=== PATIENT | female | born 1985 | race Caucasian/White ===

== ENCOUNTER 2021-10-09 20:38 | Emergency (ER) | payer OTHER ==
[~2021-10-09] VITALS: Ht 160 cm; Wt 72.6 kg
[~2021-10-09 20:38] MED LIST: HYDACE5 PO
[2021-10-09] MEDS ORDERED: AMOCLA875 PO (22:35)
[2021-10-12] MEDS ORDERED: IBUP200 PO (17:17)
[2021-10-12] MEDS ORDERED: BENADRYL25 MG PO (17:17)
== END 2021-10-09 23:23 | disposition home or self-care (01) ==
LOC: ER 20:38
DX: S02.609A Fracture of mandible, unspecified, initial encounter for closed fracture (principal); F17.210 Nicotine dependence, cigarettes, uncomplicated; Y04.8XXA Assault by other bodily force, initial encounter
CPT/HCPCS: 70486; 96374; 96375; 99283-25; A9270; J2270; J2405

== ENCOUNTER 2021-10-13 11:39 | Day surgery (SDC) | payer OTHER ==
[~2021-10-13] VITALS: Ht 160 cm; Wt 72.4 kg
[~2021-10-13 11:39] MED LIST changes: +AMOCLA875 PO; +BENADRYL25 MG PO; +IBUP200 PO
--- NOTE | 2021-10-13 13:49 | NUR ---
10/13/21 1349 Irma Schwarz PT SENT TO PACU WITH WIRE SCISSORS TO GO HOME WITH
--- NOTE | 2021-10-13 14:16 | NUR ---
10/13/21 1416 Hemalatha Rivera INFORMED PATIENT STILL HAVING PAIN. STATES TO GIVE ANOTHER 50MCG OF IVP FENTANYL AND PATIENT OKAY TO GO HOME AND TAKE PRESCRIBED PAIN MEDICATIONS FROM THERE.
== END 2021-10-13 14:24 | disposition home or self-care (01) ==
LOC: ORSCSDS 11:39
PROVIDERS: Otolaryngology
PROC: 2W31X9Z Immobilization of Face using Wire (ICD-10-PCS; principal; 2021-10-13 13:00)
PROC: 0NSTXZZ Reposition Right Mandible, External Approach (ICD-10-PCS; principal; 2021-10-13 13:00)
DX: S02.601A Fracture of unspecified part of body of right mandible, initial encounter for closed fracture (principal); F17.210 Nicotine dependence, cigarettes, uncomplicated
CPT/HCPCS: A9270; C1713; J1100; J2250; J2405; J2704; J3010

== ENCOUNTER 2022-01-30 23:25 | Emergency (ER) | payer OTHER ==
[~2022-01-30] VITALS: Ht 160 cm; Wt 68.0 kg
== END 2022-01-31 09:06 | disposition home or self-care (01) ==
LOC: ER 23:25
DX: F10.129 Alcohol abuse with intoxication, unspecified (principal); R45.1 Restlessness and agitation; F17.210 Nicotine dependence, cigarettes, uncomplicated; S41.112A Laceration without foreign body of left upper arm, initial encounter; X78.1XXA Intentional self-harm by knife, initial encounter; Z88.1 Allergy status to other antibiotic agents; Z79.899 Other long term (current) drug therapy; Z23 Encounter for immunization
CPT/HCPCS: 90714; J1790

== ENCOUNTER → 2023-02-16 | Outpatient (CLI) | payer OTHER ==
[2023-02-16 16:04] LABS: BASOPHILS ABSOLUTE AUTO 0.03 K/mm3 (0.00-0.23); BASOPHILS PERCENT AUTO 0 % (0-2); EOSINOPHILS ABSOLUTE AUTO 0.55 K/mm3 (0.00-0.68); EOSINOPHILS PERCENT AUTO 5 % (0-6); Hematocrit 45.6 % (33.0-51.0); Hemoglobin 15.4 g/dL (11.5-16.0); IMMATURE GRAN ABSOLUTE AUTO 0.04 K/mm3 (0.00-0.10); IMMATURE GRAN PERCENT AUTO 0 % (0-1); LYMPHOCYTES ABSOLUTE AUTO 2.29 K/mm3 (0.84-5.20); LYMPHOCYTES PERCENT AUTO 21 % (21-46); MONOCYTES ABSOLUTE AUTO 0.59 K/mm3 (0.16-1.47); MONOCYTES PERCENT AUTO 5 % (4-13); Mean Corpuscular HGB 32.1 pg (26.0-34.0); Mean Corpuscular HGB Conc 33.8 g/dL (31.5-36.5); Mean Corpuscular Volume 95 fL (80-100); Mean Platelet Volume 9.9 fL (9.1-12.4); NEUTROPHILS ABSOLUTE AUTO 7.55 K/mm3 (1.96-9.15); NEUTROPHILS PERCENT AUTO 68 % (41-73); Platelet Count 338 K/mm3 (150-400); RDW Coefficient Variation 12.6 % (11.7-14.2); RDW Standard Deviation 44.3 fL (35.1-46.3); White Blood Cell Count 11.05 K/mm3 (4.00-11.30)
[2023-02-16 16:18] LABS: Albumin/Globulin Ratio 1.2 (0.8-1.8); Bilirubin, Total 0.3 mg/dL (0.1-1.0); Bun/Creatinine Ratio 16.7 (12.0-20.0); Calcium, Blood 9.3 mg/dL (8.5-10.1); Creatinine, Blood 0.84 mg/dL (0.40-1.00); Globulin, Blood 3.4 g/dL (2.2-4.0); Magnesium, Blood 1.9 mg/dL (1.6-2.4); Potassium, Blood 4.1 mmol/L (3.5-5.5); Total Protein, Blood 7.4 g/dL (6.4-8.2)
== END ==
LOC: LAB SHORT 16:00 → LAB 16:00
PROVIDERS: Chiropractor
DX: R25.2 Cramp and spasm (principal)
CPT/HCPCS: 80053; 82550; 83735; 85025

== ENCOUNTER 2024-12-21 08:06 | Emergency (ER) | payer OTHER ==
[~2024-12-21] VITALS: Ht 160 cm; Wt 61.2 kg
[2024-12-21 08:23] VITALS: BP 105/62
[2024-12-21] MEDS ORDERED: Ketorolac Tromethamine 15mg Vial IM ONE (09:00)
[2024-12-21] MEDS ORDERED: FAMO20 PO ×2 (09:05→09:37)
[2024-12-21] MEDS ORDERED: IBUP600 PO ×2 (09:05→09:37)
[2024-12-21] MEDS ORDERED: AMOCLA875 PO ×2 (09:05→09:37)
== END 2024-12-21 09:12 | disposition home or self-care (01) ==
LOC: ER 08:06
DX: K04.7 Periapical abscess without sinus (principal); F17.210 Nicotine dependence, cigarettes, uncomplicated
CPT/HCPCS: 96372; 99282-25; J1885